=== PATIENT | male | born 1980 | race Two or more races ===

== ENCOUNTER 2017-08-08 23:16 | Emergency (ER) | payer OTHER ==
[2017-08-09 03:55] LABS: ADD MAN DIFF? NO
[2017-08-09 04:13] LABS: WHITE BLOOD COUNT 12.5 10^3/ul (4.8-10.8)
[2017-08-09 04:13] LABS: BASOPHIL # 0.1 10^3/ul (0.0-0.1); BASOPHILS % 0.7 % (0.0-2.0); EOSINOPHILS # 0.3 10^3/ul (0.0-0.5); EOSINOPHILS % 2.2 % (0.0-7.0); HEMATOCRIT 35.7 % (42.0-52.0); HEMOGLOBIN 11.2 g/dl (14.0-18.0); LYMPHOCYTES # 2.8 10^3/ul (0.8-2.9); LYMPHOCYTES % 22.6 % (15.0-51.0); MEAN CORPUSCULAR HEMOGLOBIN 24.5 pg (29.0-33.0); MEAN CORPUSCULAR HGB CONC 31.4 g/dl (32.0-37.0); MEAN CORPUSCULAR VOLUME 77.9 fl (82.0-101.0); MEAN PLATELET VOLUME 10.6 fl (7.4-10.4); MONOCYTE # 0.7 10^3/ul (0.3-0.9); MONOCYTES % 5.9 % (0.0-11.0); NEUTROPHIL # 8.5 10^3/ul (1.6-7.5); NEUTROPHILS % 67.7 % (39.0-77.0); PLATELET COUNT 413 10^3/UL (140-415); RED BLOOD COUNT 4.58 10^6/ul (4.70-6.10)
[2017-08-09 04:17] LABS: ANION GAP 16 (8-16); BLOOD UREA NITROGEN 19 mg/dl (7-20); CALCIUM 9.1 mg/dl (8.4-10.2); CARBON DIOXIDE 23 mmol/L (21-31); CHLORIDE 109 mmol/L (97-110); CREATININE 1.68 mg/dl (0.61-1.24); GLUCOSE 103 mg/dl (70-220); POTASSIUM 4.4 mmol/L (3.5-5.1); SODIUM 144 mmol/L (135-144)
[2017-08-09] MEDS: ASPIRIN 325 MG TAB PO (04:18)
[2017-08-09] MEDS: LIDOCAINE/MYLANTA 40 ML BTL PO (04:18)
[2017-08-09] MEDS: SOD CHLORIDE 0.9% 500 ML IV (04:19)
[2017-08-09 04:29] LABS: B-TYPE NATRIURETIC PEPTIDE 71 PG/ML (0-125)
[2017-08-09 04:31] LABS: TROPONIN-I < 0.012 ng/ml (0.000-0.120)
== END 2017-08-09 06:00 | disposition home or self-care (01) ==
LOC: E/R 23:16
DX: D72.829 Elevated white blood cell count, unspecified (principal); R40.2252 Coma scale, best verbal response, oriented, at arrival to emergency department; L03.112 Cellulitis of left axilla; I12.9 Hypertensive chronic kidney disease with stage 1 through stage 4 chronic kidney disease, or unspecified chronic kidney disease; N18.9 Chronic kidney disease, unspecified; F17.210 Nicotine dependence, cigarettes, uncomplicated; R40.2142 Coma scale, eyes open, spontaneous, at arrival to emergency department; R40.2362 Coma scale, best motor response, obeys commands, at arrival to emergency department
CPT/HCPCS: 36415; 71045; 80048; 83880; 84484; 85025; 93005; 99285-25

== ENCOUNTER 2017-11-01 14:05 | Emergency (ER) | payer OTHER | END 2017-11-01 16:36 | disposition home or self-care (01) | LOC: FTE 16:36 | DX: K65.1 Peritoneal abscess (principal); I12.9 Hypertensive chronic kidney disease with stage 1 through stage 4 chronic kidney disease, or unspecified chronic kidney disease; N18.9 Chronic kidney disease, unspecified; Z00.00 Encounter for general adult medical examination without abnormal findings; Z87.891 Personal history of nicotine dependence | CPT/HCPCS: 99282; Z7502 ==

== ENCOUNTER 2017-11-11 22:26 | Emergency (ER) | payer OTHER | END 2017-11-12 02:24 | disposition home or self-care (01) | LOC: E/R 22:26 | DX: I12.9 Hypertensive chronic kidney disease with stage 1 through stage 4 chronic kidney disease, or unspecified chronic kidney disease (principal); F17.210 Nicotine dependence, cigarettes, uncomplicated; N18.9 Chronic kidney disease, unspecified | CPT/HCPCS: 93005; 99283-25 ==

== ENCOUNTER 2018-04-05 22:35 | Emergency (ER) | payer OTHER ==
[2018-04-06 01:09] LABS: ADD MAN DIFF? NO
[2018-04-06 01:12] LABS: WHITE BLOOD COUNT 11.5 10^3/ul (4.8-10.8)
[2018-04-06 01:12] LABS: BASOPHIL # 0.1 10^3/ul (0.0-0.1); BASOPHILS % 0.7 % (0.0-2.0); EOSINOPHILS # 0.2 10^3/ul (0.0-0.5); EOSINOPHILS % 1.5 % (0.0-7.0); HEMATOCRIT 37.5 % (42.0-52.0); HEMOGLOBIN 11.3 g/dl (14.0-18.0); LYMPHOCYTES # 2.1 10^3/ul (0.8-2.9); LYMPHOCYTES % 18.4 % (15.0-51.0); MEAN CORPUSCULAR HEMOGLOBIN 22.1 pg (29.0-33.0); MEAN CORPUSCULAR HGB CONC 30.1 g/dl (32.0-37.0); MEAN CORPUSCULAR VOLUME 73.2 fl (82.0-101.0); MEAN PLATELET VOLUME 9.8 fl (7.4-10.4); MONOCYTE # 0.7 10^3/ul (0.3-0.9); NEUTROPHIL # 8.4 10^3/ul (1.6-7.5); PLATELET COUNT 406 10^3/UL (140-415); RED BLOOD COUNT 5.12 10^6/ul (4.70-6.10); RED CELL DISTRIBUTION WIDTH 18.5 % (11.5-14.5)
[2018-04-06 01:31] LABS: ANION GAP 12 (5-13); BLOOD UREA NITROGEN 22 mg/dl (7-20); CALCIUM 9.6 mg/dl (8.4-10.2); CARBON DIOXIDE 25 mmol/L (21-31); CHLORIDE 104 mmol/L (97-110); CREATININE 2.07 mg/dl (0.61-1.24); Estimated GFR 36 mL/min (>60); GLUCOSE 115 mg/dl (70-220); SODIUM 141 mmol/L (135-144)
[2018-04-06 01:42] LABS: TROPONIN-I < 0.012 ng/ml (0.000-0.120)
== END 2018-04-06 03:21 | disposition home or self-care (01) ==
LOC: E/R 04-06 03:21
DX: R07.9 Chest pain, unspecified (principal); R00.2 Palpitations; R20.2 Paresthesia of skin; F41.9 Anxiety disorder, unspecified; N18.9 Chronic kidney disease, unspecified; D50.9 Iron deficiency anemia, unspecified; I13.0 Hypertensive heart and chronic kidney disease with heart failure and stage 1 through stage 4 chronic kidney disease, or unspecified chronic kidney disease; I50.9 Heart failure, unspecified; Z87.891 Personal history of nicotine dependence
CPT/HCPCS: 36415; 71045; 80048; 84484; 85025; 93005; 99285-25